=== PATIENT | male | born 1975 | race Hispanic/Latino ===

== ENCOUNTER → 2020-09-24 13:08 | Outpatient (CLI) | payer OTHER, SELFPAY ==
[2020-09-24 14:05] LABS: Add Manual Diff / Slide Review NO; Basophils Absolute Auto 0 /uL (0-100); Basophils Percent Auto 0.3 % (0-2); Eosinophils Absolute Auto 0 /uL (0-450); Eosinophils Percent Auto 0.3 % (2-4); Hematocrit 38.9 % (41-53); Hemoglobin 13.7 g/dL (13.5-17.5); Lymphocytes Absolute Auto 2400 /uL (1100-4500); Lymphocytes Percent Auto 22.1 % (25-40); Mean Corpuscular HGB Conc 35.3 % (30-36); Mean Corpuscular Hemoglobin 31.6 PG (26-34); Mean Corpuscular Volume 89.4 fL (80-100); Monocytes Absolute Auto 600 /uL (0-900); Monocytes Percent Auto 5.8 % (3-14); Neutrophils Absolute Auto 7700 /uL (1500-7000); Neutrophils Percent Auto 71.5 % (50-75); Platelet Count 247 X10^3/uL (150-400); Red Blood Cell Count 4.35 X10^6/uL (4.5-5.9); Red Cell Distribution Width 12.5 % (11.6-14.8); White Blood Cell Count 10.8 X10^3/uL (4.5-11.0)
[2020-09-24 14:38] LABS: BUN Creatinine Ratio 17.8 (6-22); Blood Urea Nitrogen 16 mg/dL (9-20); Calcium 9.3 mg/dL (8.4-10.2); Carbon Dioxide 26 mmol/L (22-32); Chloride 105 mmol/L (98-107); Estimated Glomerular Filt Rate > 60.0 mL/min (>60); Glucose 117 mg/dL (70-100); HEMOLYSIS < 15 (0-50); Potassium 3.9 mmol/L (3.4-5.1); Sodium 137 mmol/L (137-145)
[2020-09-24 15:07] LABS: Prostate Specific Antigen Scrn 0.794 ng/mL (0.1-4.0)
== END ==
LOC: LAB 13:12
PROVIDERS: PCP Family Medicine; Referring Provider Family Medicine; Visit Provider Family Medicine
DX: G47.19 Other hypersomnia (principal); R39.9 Unspecified symptoms and signs involving the genitourinary system; Z12.5 Encounter for screening for malignant neoplasm of prostate; Z83.3 Family history of diabetes mellitus
CPT/HCPCS: 36415; 80048; 85025; G0103

== ENCOUNTER 2022-10-10 18:55 | Emergency (ER) | payer OTHER, SELFPAY ==
[2022-10-10 19:05] VITALS: BP 131/80; PULSE 83; RESP 16; TEMP 37.4; O2SAT 99; BMI 21.9
--- NOTE | 2022-10-10 19:19 | DI.RAD.S_ITS ---
PROCEDURE: XR ANKLE RT MIN 3V INDICATIONS: rolled ankle TECHNIQUE: 3 views of the ankle were acquired. COMPARISON: None. FINDINGS: Bones: No fractures or dislocations. Ankle mortise is normally aligned. No suspicious bony lesions. Midfoot degenerative changes as well as calcaneal spur is present. Soft tissues: Prominent lateral malleolar edema. Achilles tendon appears normal. IMPRESSION: Lateral malleolar edema. No visualized acute fracture or dislocation. However, if clinical concern and/or pain persist, short interval imaging followup in 7-10 days is recommended, as occult injury cannot be definitively excluded. Dictated by: Lyla Kidd M.D. on 10/10/2022 at 19:40 Approved by: Lyla Kidd M.D. on 10/10/2022 at 19:41
--- NOTE | 2022-10-10 19:26 | ED_ITS ---
HPI - Extremity Injury (Lower) General Chief Complaint: Extremity Injury, Lower Stated Complaint: Rolled Rt ankle Time Seen by Provider: 10/10/22 19:13 Source: patient Mode of arrival: Wheelchair History of Present Illness HPI Narrative: 47-year-old maleDaily smoker with no significant medical history presents with significant other and a chief complaint of an accidental injury to his right ankle just prior to arrival. He had been walking and misjudged an uneven step and rolled his right ankle. He is developed swelling over his lateral malleolus and has pain with ambulation. He denies numbness, tingling or weakness. He denies any pain in his knee or hip. He denies prodromal symptoms contributing to the fall such as dizziness, weakness or lightheadedness. Related Data Home Medications Medication Instructions Recorded Confirmed cyclobenzaprine 10 mg tablet 10 mg PO BEDTIME 09/22/20 02/22/21 Previous Rx's Medication Instructions Recorded tamsulosin 0.4 mg capsule 0.4 mg PO DAILY #90 caps 10/19/20 Allergies Allergy/AdvReac Type Severity Reaction Status Date / Time No Known Drug Allergies Allergy Unverified 02/22/21 16:29 Review of Systems Review of Systems Narrative: GENERAL: Denies chills, fatigue, malaise, fever, sweats. HEENT: Denies sinus pain, ear pain, sore throat, difficulty swallowing, dizziness. RESPIRATORY: Denies dyspnea, cough, wheezing, hemoptysis, sputum. CARDIOVASCULAR: Denies chest pain, palpitations, orthopnea, edema, GASTROINTESTINAL: Denies nausea, vomiting, abdominal pain, diarrhea, constipation, melena. : Denies dysuria, frequency, incontinence, hematuria, urinary retention. MUSCULOSKELETAL: See HPI SKIN: Denies rash, skin lesions, or other NEUROLOGIC: Denies weakness, headache, numbness, change in speech, confusion, seizures, incoordination. PSYCHIATRIC: No concerning psychosocial issues. 12 point review of systems is negative except for those stated above Patient History Medical History Bilateral foot pain Bilateral plantar fasciitis Chicken pox (~1985) Chronic back pain (~2005) Excessive daytime sleepiness Family history of diabetes mellitus Foot pain (~2006) Hammer toes of both feet Lipoma (~2017) Lipoma of right shoulder Lower urinary tract symptoms (LUTS) Screening for prostate cancer Sebaceous cyst Sleep apnea (~2017) Somatic dysfunction of lower extremity Surgical History Anesthesia History of oral surgery Family History Father Diabetes mellitus Mother Diabetes mellitus Sister Diabetes mellitus Father Diabetes mellitus Colon polyps Mother Diabetes mellitus Sister Diabetes mellitus Social History Smoking Status: Current every day smoker Smoking Status: Current every day smoker tobacco type: vaping alcohol intake frequency: holidays/special occasions only Substance Use Type: marijuana Exam Narrative Exam Narrative: GENERAL: [47] year old patient appears stated age. Well-developed patient, in mild distress. HEAD: Atraumatic. Normocephalic. EYES: Pupils equal round and reactive. Extraocular motions intact. No scleral icterus. No injection or drainage. ENT: Nose without bleeding, purulent drainage. Throat without erythema, tonsillar hypertrophy or exudate. Airway patent. NECK: Trachea midline. Non tender CARDIOVASCULAR: Regular rate and rhythm without murmurs, gallops, or rubs. RESPIRATORY: Clear to auscultation. Breath sounds equal bilaterally. No wheezes, rales, or rhonchi. GASTROINTESTINAL: Abdomen soft, non-tender, nondistended. EXTREMITIES: Tenderness and swelling over the right lateral malleolus without evidence of ligamentous instability, there is no tenderness over anterior talus, this is closed, isolated and neurovascularly intact, compartments are soft, negative squeeze test, no pain at proximal fibula. BACK: Nontender without deformity or crepitance. No flank tenderness. NEURO: AOx3. SKIN: No rash or erythema of visible areas Initial Vital Signs Initial Vital Signs: Vital Signs Temperature 99.4 F 10/10/22 19:05 Pulse Rate 83 10/10/22 19:05 Respiratory Rate 16 10/10/22 19:05 Blood Pressure 131/80 10/10/22 19:05 Pulse Oximetry 99 10/10/22 19:05 Oxygen Delivery Method 10/10/22 19:05 Procedures Orthopedic Splinting/Casting Injury #1: Side: right Lower Extremity Injury Location: ankle Lower Extremity Immobilizer: AirCast Post splinting neuro exam: intact Post splinting vascular exam: intact Placed by: Nursing Course Orders Ordered: ED Orders 10/10/22 19:19 XR ankle RT min 3V Stat Vital Signs Vital signs: Vital Signs - 8 hr 10/10/22 19:05 Temperature 99.4 F Pulse Rate 83 Respiratory Rate 16 Blood Pressure 131/80 Pulse Oximetry 99 Oxygen Delivery Method Room Air MDM - Extremity Injury (Lower) MDM Narrative Medical decision making narrative: 47-year-old male presents with low risk isolated ankle injury suffered just prior to arrival. He has tenderness to palpation with swelling over his lateral malleolus and pain with ambulation. X-ray demonstrates no fracture, di slocation or abnormal joint space. Patient's injuries closed isolated and neurovascularly intact. Most likely an injury to the anterior talofibular ligament. Compartments are soft, high ankle sprain and shelley off fracture considered but thought unlikely given lack of findings on physical exam. Patient splinted, encouraged to weightbear as tolerated, elevate, ice, compress, follow with PCP. Return precautions discussed and questions answered to his apparent satisfaction Discharge Plan Departure Patient Disposition: Home Clinical Impression: Ankle sprain Qualifiers: Encounter type: initial encounter Involved ligament of ankle: unspecified ligament Laterality: right Qualified Code(s): S93.401A - Sprain of unspecified ligament of right ankle, initial encounter Instructions: DI for Ankle Sprain Activity Restrictions/Additional Instructions: *You have been diagnosed with [right ankle sprain]. Your history, physical exam and x-ray are reassuring and there is no evidence of fracture or dislocation *What to do: *Please continue to take your regular medications as directed. [ ] New medication prescriptions sent to your pharmacy: [ ] [ ] New medication written as a paper prescription [ ] No new medications given *Please follow up with your primary care provider in 2-3 days, call for an appointment. Let them know you were seen in the Emergency Department and that we ask that you be seen in follow up. * as we discussed, please elevate your right foot above the level of your heart, minimize ambulation, weight-bearing as tolerated, ice for the 1st 24 hours and consider the routine use of an anti-inflammatory such as ibuprofen for the 1st few days. In most cases this will gradually improve over the course of a week or so but for lack of improvement at that time please follow-up with your primary care provider for repeat assessment *If you do not have a primary care provider please contact the [facility] Resource line at [phone]. They will ask some questions about your medical history and help get you set up with a doctor in the community. *Return to Emergency Department if you should have any new, worsening or concerning symptoms Prescriptions: No Action cyclobenzaprine 10 mg tablet 10 mg PO BEDTIME tamsulosin 0.4 mg capsule 0.4 mg PO DAILY Qty: 90 1RF Referrals: Sujit Eisenberg DO [Primary Care Provider] - Stand Alone Forms: Work Release Note Visit Report Forms: Patient Portal/API
== END 2022-10-10 20:11 | disposition home or self-care (01) ==
PROVIDERS: Emergency Provider Emergency Medicine; PCP Family Medicine
DX: S93.401A Sprain of unspecified ligament of right ankle, initial encounter (principal); X50.1XXA Overexertion from prolonged static or awkward postures, initial encounter
CPT/HCPCS: 29540; 73610; 99283

== ENCOUNTER → 2024-02-20 10:26 | Outpatient (CLI) | payer OTHER, SELFPAY ==
--- NOTE | 2024-02-20 10:29 | DI.RAD.S_ITS ---
PROCEDURE: XR LUMBAR SPINE 2-3V INDICATIONS: chronic back pain TECHNIQUE: 3 views of the lumbar spine were acquired. COMPARISON: None. FINDINGS: Bones: 5 [id number] vertebrae are present. There is mild dextroconvex curvature of the lumbar spine. 3-4 mm grade 1 retrolisthesis at L1-2 and L2-3 and anterolisthesis at L4-5. No vertebral body compression fractures. No suspicious bony lesions. Multilevel disc space narrowing degenerative endplate changes and multilevel facet hypertrophy. Soft tissues: Overlying bowel gas pattern is normal. No suspicious soft tissue calcifications. IMPRESSION: Moderate multilevel spondylosis and degenerative spondylolisthesis. Mild dextroconvex curvature. Approved by: Ney Tam M.D. on 02/20/2024 at 22:16
--- NOTE | 2024-02-20 10:29 | DI.RAD.S_ITS ---
PROCEDURE: XR CHEST 2V INDICATIONS: chronic cough TECHNIQUE: 2 views of the chest were acquired. COMPARISON: None. FINDINGS: Surgical changes and devices: None. Lungs and pleura: Lungs are clear. No pleural effusions or pneumothorax. Mediastinum: Mediastinal contours are normal. Heart size is normal. Bones and chest wall: No suspicious bony abnormalities. Soft tissues appear unremarkable. IMPRESSION: No acute cardiopulmonary abnormality is seen. Approved by: Ney Tam M.D. on 02/20/2024 at 22:15
[2024-02-20 11:20] LABS: Add Manual Diff / Slide Review NO; Basophils Absolute Auto 100 /uL (0-100); Basophils Percent Auto 0.6 % (0-2); Eosinophils Absolute Auto 200 /uL (0-450); Eosinophils Percent Auto 2.6 % (2-4); Hematocrit 43.2 % (41-53); Hemoglobin 14.7 g/dL (13.5-17.5); Lymphocytes Absolute Auto 2200 /uL (1100-4500); Lymphocytes Percent Auto 25.6 % (25-40); Mean Corpuscular Hemoglobin 30.7 PG (26-34); Mean Corpuscular Volume 90.1 fL (80-100); Monocytes Absolute Auto 600 /uL (0-900); Monocytes Percent Auto 6.7 % (3-14); Neutrophils Absolute Auto 5600 /uL (1500-7000); Neutrophils Percent Auto 64.5 % (50-75); Platelet Count 236 X10^3/uL (150-400); Red Blood Cell Count 4.79 X10^6/uL (4.5-5.9); Red Cell Distribution Width 12.9 % (11.6-14.8); White Blood Cell Count 8.7 X10^3/uL (4.5-11.0)
[2024-02-20 11:27] LABS: Hemoglobin A1C% w Est Avg Glu 5.5 % (4.0-6.0)
[2024-02-20 11:48] LABS: Alanine Aminotransferase 50 IU/L (<50); Albumin 4.3 g/dL (3.5-5.0); Albumin Globulin Ratio 1.4 (1.0-2.8); Alkaline Phosphatase 78 U/L (38-126); Aspartate Aminotransferase 34 IU/L (17-59); BUN Creatinine Ratio 16.1 (6-22); Bilirubin Total 0.6 mg/dL (0.2-1.3); Blood Urea Nitrogen 14 mg/dL (9-20); Calcium 9.3 mg/dL (8.4-10.2); Carbon Dioxide 26 mmol/L (22-32); Chloride 107 mmol/L (98-107); Cholesterol 195 mg/dL (140-199); Estimated Glomerular Filt Rate > 60 mL/min (>60); Globulin 3.1 g/dL (1.7-4.1); Glucose 105 mg/dL (70-100); HDL Cholesterol 42 mg/dL (40-60); HEMOLYSIS < 15 (0-50); LDL Cholesterol Calculated 124 mg/dL (<100); Potassium 4.3 mmol/L (3.4-5.1); Sodium 140 mmol/L (137-145); Total Protein 7.4 g/dL (6.3-8.2); Triglycerides 145 mg/dL (35-150)
[2024-02-20 12:21] LABS: TSH w/ Reflex to FT4 2.58 uIU/mL (0.47-4.68)
[2024-02-20 18:10] LABS: Hep C Virus Ab w/Reflex Quant NEGATIVE s/c (NEGATIVE)
[2024-02-21 08:11] LABS: Apolipoprotein B 102 mg/dL (<90)
== END ==
LOC: RAD 10:28
PROVIDERS: PCP Family Medicine; Referring Provider Family Medicine; Visit Provider Family Medicine
DX: M47.816 Spondylosis without myelopathy or radiculopathy, lumbar region (principal); M43.16 Spondylolisthesis, lumbar region; R05.3 Chronic cough; G62.9 Polyneuropathy, unspecified; G47.19 Other hypersomnia; G47.30 Sleep apnea, unspecified; R73.9 Hyperglycemia, unspecified; M72.2 Plantar fascial fibromatosis
CPT/HCPCS: 36415; 71046; 72100; 80053; 80061; 82172; 83036; 84443; 85025; 86803

== ENCOUNTER → 2024-03-21 16:16 | Outpatient (CLI) | payer OTHER, SELFPAY ==
--- NOTE | 2024-03-21 16:17 | DI.US.S_ITS ---
PROCEDURE: US SCROTUM INDICATIONS: scrotal swelling post vasectomy TECHNIQUE: Real-time scanning was performed of the scrotum and testicles, with image documentation. Color and pulse Doppler interrogation was performed of both testicles. COMPARISON: None. FINDINGS: Right: Testicle is normal in size at 4.2 x 3 x 2.9 cm, and homogenous in echotexture. Epididymis is not well seen. Heterogeneous collection anterior to the right testicle measuring 6.7 x 5.8 x 3.3 cm, estimated volume of 67 cc. No convincing internal vascularity. Small hydrocele. No varicoceles. Overlying scrotal skin is normal in thickness. Left: Testicle is normal in size at 4.3 x 2.9 x 2.2 cm, and homogeneous in echotexture. Epididymis is normal in overall size and morphology. No hydrocele or varicoceles. Overlying scrotal skin is normal in thickness. Doppler: Color and pulse Doppler demonstrate normal and symmetric arterial flow in both testicles. IMPRESSION: 1. Complex collection anterior to the right testicle measuring 6.7 cm and approximately 67 cc. Suspect hematoma. -Recommend follow-up scrotal ultrasound. 2. Small right hydrocele. 3. No testicular mass. Dictated by: Artie Reddy M.D. on 03/21/2024 at 17:11 Approved by: Artie Reddy M.D. on 03/21/2024 at 17:15
== END ==
PROVIDERS: PCP Family Medicine; Referring Provider Family Medicine; Visit Provider Family Medicine
DX: N50.89 Other specified disorders of the male genital organs (principal); N43.3 Hydrocele, unspecified; Z98.52 Vasectomy status
CPT/HCPCS: 76870